=== PATIENT | female | born 1950 | race Caucasian/White ===

== ENCOUNTER 2017-08-30 07:42 | Day surgery (SDC) | payer MEDICARE ==
[2017-08-30] MEDS ORDERED: Lactated Ringers 1,000 ML IV SCH (08:15)
[2017-08-30] MEDS ORDERED: Bupivacaine 0.25% 10 ML SDV ONE (08:23)
[2017-08-30] MEDS ORDERED: Propofol 200 MG/20 ML SDV ONE (09:24)
[2017-08-30] MEDS ORDERED: Clindamycin Phosphate 900 MG in Sodium Chloride 0.9% 100 ML IV ONE (09:43)
[2017-08-30] MEDS ORDERED: Bupivacaine 0.25% 10 ML SDV INJECT ONE (10:10)
[2017-08-30 11:10] VITALS: BP 189/98
--- NOTE | 2017-08-30 16:53 | OR ---
DATE OF PROCEDURE: 08/30/2017 PREOPERATIVE DIAGNOSIS: Trigger finger, left ring finger. POSTOPERATIVE DIAGNOSIS: Trigger finger, left ring finger. PROCEDURE PERFORMED: Release A1 kris, left ring finger. ESTIMATED BLOOD LOSS: Minimum. COMPLICATIONS: No complication. INDICATIONS: The patient is a 67-year-old, had been having some triggering of her left ring finger, enough that she was locked when we saw her in the clinic with infection. She was able to unlock it, but now she was stuck in that position, so it was decided to proceed with surgery. I had discussed with the patient the possible risks, benefits, alternatives, and complications of surgery. The nature of the surgery was explained. All questions were answered. I had informed consent. Possible complications include, but not excluded to infection, phlebitis, nerve damage, vascular damage, possible retriggering, persistent pain, stiffness, weakness, pulmonary emboli, stroke, transfusion, heart attack, medical complication, possible , and I did explain the rehabilitation program. All questions were answered. I had informed consent. The patient was taken to the OR. I did my markings at the left ring finger, and she did receive antibiotics preop. The [employer] proceeded with slight IV sedation. A tourniquet was applied at the left upper extremity in proximity. Sterile prep and dressing were done in the usual manner at the left hand. Time-out was taken to identify the correct surgical site. I did a local block with Marcaine 0.25, subcutaneous tissue with the A1 kris of her left ring finger. The arm was elevated, tourniquet was raised to 250 mmHg. A transverse incision was done across the A1 kris palmar at the base of her left ring finger about 1 cm. Dissection was carried down to the central portion to avoid the neurovascular bundle. The medial lateral side of the kris was identified. Cut with a scalpel and I had for release of her finger which was locked in place. I had good gliding of the tendon without any inflammation. Once the release done there was washed with saline. The skin was closed with nylon. Three zero simple sutures compressing dressing was applied. Tourniquet was released. Blood loss was minimal. There was no complication. The patient tolerated well the operation and was taken to the recovering room in good condition. Liban Jacome MD /[id number]
== END 2017-08-30 11:35 | disposition home or self-care (01) ==
LOC: JP.SDS 07:42
PROVIDERS: ATTEND Orthopaedic Surgery
DX: M65.342 Trigger finger, left ring finger (principal); K21.9 Gastro-esophageal reflux disease without esophagitis; E66.9 Obesity, unspecified; E03.9 Hypothyroidism, unspecified; F32.9 Major depressive disorder, single episode, unspecified; F41.1 Generalized anxiety disorder; J44.9 Chronic obstructive pulmonary disease, unspecified; Z91.09 Other allergy status, other than to drugs and biological substances; Z88.1 Allergy status to other antibiotic agents; Z88.2 Allergy status to sulfonamides; Z88.8 Allergy status to other drugs, medicaments and biological substances; Z91.040 Latex allergy status; Z91.018 Allergy to other foods; Z87.891 Personal history of nicotine dependence
CPT/HCPCS: 26055; J2704; J7030; J7120; S0077